=== PATIENT | male | born 1995 | race African-American/Black ===

== ENCOUNTER 2025-02-17 15:56 | Emergency (ER) | payer SELFPAY | END 2025-02-17 16:45 | disposition home or self-care (01) | LOC: CSHERS 15:56 | DX: Z76.0 Encounter for issue of repeat prescription (principal); J45.909 Unspecified asthma, uncomplicated; Z79.51 Long term (current) use of inhaled steroids | CPT/HCPCS: 99281 ==

== ENCOUNTER 2025-03-08 14:37 | Emergency (ER) | payer SELFPAY | END 2025-03-08 15:50 | disposition home or self-care (01) | LOC: CSHERS 14:37 | DX: J45.909 Unspecified asthma, uncomplicated (principal); Z76.0 Encounter for issue of repeat prescription | CPT/HCPCS: 99281 ==